=== PATIENT | male | born 1960 | race Caucasian/White ===

== ENCOUNTER → 2016-10-29 | Outpatient (CLI) | payer BC ==
--- NOTE | 2016-10-29 15:49 | KCIC ---
PROCEDURE Right elbow radiographs. HISTORY Right elbow pain after fall 3-4 days ago COMPARISON None FINDINGS Two views of the right elbow are submitted. No acute fracture or dislocation is identified. There is no significant displacement of the fat pads about the elbow. IMPRESSION No acute osseous abnormality is identified of the right elbow. Electronically signed by: Lorne Cabral MD (October 29, 2016 15:48:55)
--- NOTE | 2016-10-29 15:51 | KCIC ---
PROCEDURE Right knee radiographs. HISTORY Right knee pain after fall 3-4 days ago COMPARISON None FINDINGS Three views of the right knee are submitted. No acute fracture or dislocation is identified. There is mild osteoarthritic change of the patellofemoral articulation and the medial compartment. IMPRESSION 1. No acute radiographic abnormality is identified. There is mild osteoarthritic change. Electronically signed by: Lorne Cabral MD (October 29, 2016 15:49:55)
== END | disposition home or self-care (01) ==
LOC: KCIC 13:13
PROVIDERS: ATTEND Nurse Practitioner Family
DX: M17.11 Unilateral primary osteoarthritis, right knee (principal); M25.521 Pain in right elbow
CPT/HCPCS: 73070; 73562